=== PATIENT | male | born 1960 | race Caucasian/White ===

== ENCOUNTER 2020-10-11 10:46 | Emergency (ER) | payer OTHER ==
[~2020-10-11] VITALS: Ht 170.2 cm; Wt 93.1 kg
--- NOTE | 2020-10-11 10:59 | NUR ---
HAS BEEN TAKING METHYLPREDNISOLONE 4MG TAB, DECREASING DOSE: TOOK 6 TABS TODAY.
[2020-10-11] MEDS ORDERED: TEMA30CA PO (11:04)
[2020-10-11] MEDS ORDERED: MELO7.5T31 PO (11:04)
[2020-10-11] MEDS ORDERED: CHOLESTEROL (11:04)
[2020-10-11] MEDS ORDERED: CYAN10002 SQ (11:04)
[2020-10-11] MEDS ORDERED: METH4TAB6 PO (11:04)
[2020-10-11] MEDS ORDERED: OXYcodone/APAP 5/325MG TABLET PO ONE (11:30)
[2020-10-11] MEDS ORDERED: KETOROLAC 30 MG/1 ML IM ONE (11:30)
[2020-10-11] MEDS ORDERED: METHOCARBAMOL 750 MG TABLET PO ONE (11:30)
--- NOTE | 2020-10-11 11:36 | NUR ---
TO XR PER MAHI
[2020-10-11] MEDS ORDERED: METHOCARBAMOL 750 MG TABLET ONE (12:08)
[2020-10-11] MEDS ORDERED: OXYcodone/APAP 5/325MG TABLET ONE (12:08)
[2020-10-11] MEDS ORDERED: KETOROLAC 30 MG/1 ML ONE (12:08)
--- NOTE | 2020-10-11 12:11 | NUR ---
PT STATES HE GOT A TORADOL SHOT YESTERDAY "AND IT DIDN'T WORK". OFFERED TO LET PROVIDER KNOW IF HE DIDN'T WANT IT; INFORMED HIM OF ADDITIONAL MEDS ORDERED. PT AGREEABLE TO CURRENT MED ORDER.
--- NOTE | 2020-10-11 12:17 | NUR ---
TORADOL IM, PERCOCET AND ROBAXIN GIVEN PER EMAR. URINAL PROVIDED TO PT.
--- NOTE | 2020-10-11 12:45 | NUR ---
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
[2020-10-11] MEDS ORDERED: ONDANSETRON ODT 4 MG ONE (12:59)
[2020-10-11] MEDS ORDERED: HYDROmorphone 1 MG/ML, 1ML INJ ONE (12:59)
[2020-10-11] MEDS ORDERED: ONDANSETRON ODT 4 MG PO ONE (13:00)
[2020-10-11] MEDS ORDERED: HYDROmorphone 1 MG/ML, 1ML INJ IM ONE (13:00)
--- NOTE | 2020-10-11 13:02 | NUR ---
NO REPORT FROM TECH RE: WALK TEST. PT SUPINE ON [facility]. STATES WALK TEST "DIDN'T WORK; TOO MUCH PAIN."
--- NOTE | 2020-10-11 13:05 | NUR ---
DILAUDID IM AND ZOFRAN GIVEN PER EMAR.
[2020-10-11 13:30] VITALS: BP 145/81
--- NOTE | 2020-10-11 13:34 | NUR ---
PT SUPINE. ABLE TO FLEX LT LEG AT HIP AND KNEE W/OUT PAIN; REPORTS SLIGHT TIGHTNESS TO POSTERIOR THIGH.
--- NOTE | 2020-10-11 13:36 | NUR ---
MANAGER SOLAR W/ PT FOR AMBULATION TEST. PT ABLE TO SIT UP QUICKLY W/OUT ASSIST; ABLE TO AMBULATE IN ROOM, STATES "IT WASN'T BAD IT WAS EARLIER." "I'M NOT SURE WHAT I'M GOING TO DO WHEN THE SHOT WEARS OFF".
--- NOTE | 2020-10-11 13:57 | NUR ---
[id number] WRITTEN DC INSTRUCTIONS DISCUSSED W/ PT; UNDERSTANDING VERBALIZED. PT ABLE TO STAND AND GET HIMSELF INTO W/C W/OUT ASSIST. THEN C/O LEG PAIN AND RETURNED TO [facility]. DISCUSSED W/C RIDE TO DC DESK VS WALKING. PT CHOSE TO WALK. ACCOMPANIED PT TO DC DESK AND THEN WR; AMBULATORY W/ LIMP. ADVISED PT CALLING [facility] TODAY, PT STATES "MY IS ALREADY ON IT". PT AWAITING TRANSPORT HOME.
== END 2020-10-11 14:01 | disposition home or self-care (01) ==
LOC: ED 11:24
DX: S39.012A Strain of muscle, fascia and tendon of lower back, initial encounter (principal); M25.552 Pain in left hip; M25.551 Pain in right hip; M51.36 Other intervertebral disc degeneration, lumbar region; X58.XXXA Exposure to other specified factors, initial encounter; Y93.89 Activity, other specified; Y92.89 Other specified places as the place of occurrence of the external cause; Y99.8 Other external cause status
CPT/HCPCS: 72110; 73502; 96372; 99284; J1170; J1885; Q0162